=== PATIENT | male | born 1980 | race Caucasian/White ===

== ENCOUNTER 2018-08-04 19:04 | Emergency (ER) | payer BC, SELFPAY ==
[2018-08-04] MEDS ORDERED: IBUPROFEN 200 MG TAB PO ONE (20:09)
[2018-08-04] MEDS ORDERED: IBUPROFEN 400 MG TAB ONE (20:09)
--- NOTE | 2018-08-04 21:38 | RAD REPORT ---
EXAM DESCRIPTION: RAD - Chest Pa And Lat (2 Views) - 08/04/2018 9:33 pm CLINICAL HISTORY: COUGH Chest pain. COMPARISON: No comparisons FINDINGS: The lungs are clear. The heart is normal in size. No displaced fractures. IMPRESSION: No acute or concerning finding suspected.
--- NOTE | 2018-08-04 21:45 | EDPHYS ---
Physician Documentation [facility] Name: Moy Reilly Age: 38 yrs Sex: Male : 1980 Arrival Date: 08/04/2018 Time: 19:08 Bed 30 Private MD: ED Physician Blayne Sampson HPI: 08/04 21:40 This 38 yrs old Male presents to ER via Ambulatory with complaints of Flu pm1 Symptoms. 21:40 The patient or guardian reports cough, with productive sputum, that is yellow. Onset: pm1 The symptoms/episode began/occurred 3 day(s) ago. Severity of symptoms: in the emergency department the symptoms are actually worse. Modifying factors: The symptoms are alleviated by nothing, the symptoms are aggravated by nothing. Associated signs and symptoms: Pertinent positives: sore throat, Pertinent negatives: chest pain, fever, nausea, rhinorrhea, vomiting. The patient has not experienced similar symptoms in the past. The patient has not recently seen a physician. Historical: - Allergies: 19:17 No Known Allergies; aj - Home Meds: 19:17 None [Active]; aj - PMHx: 19:17 None; aj - PSHx: 19:17 None; aj - Immunization history:: Adult Immunizations up to date. - Social history:: Smoking status: Patient uses tobacco products, chewing tobacco. - Ebola Screening: : Patient negative for fever greater than or equal to 101.5 degrees Fahrenheit, and additional compatible Ebola Virus Disease symptoms Patient denies exposure to infectious person Patient denies travel to an Ebola-affected area in the 21 days before illness onset No symptoms or risks identified at this time. ROS: 21:40 Eyes: Negative for injury, pain, redness, and discharge, ENT: Negative for injury, pm1 pain, and discharge. 21:40 Neck: Negative for injury, pain, and swelling, Cardiovascular: Negative for chest pain, palpitations, and edema. 21:40 Abdomen/GI: Negative for abdominal pain, nausea, vomiting, diarrhea, and constipation, Back: Negative for injury and pain, : Negative for injury, bleeding, discharge, and swelling, MS/Extremity: Negative for injury and deformity, Skin: Negative for injury, rash, and discoloration, Neuro: Negative for headache, weakness, numbness, tingling, and seizure. 21:40 Constitutional: Positive for body aches, chills, Negative for fever. 21:40 Respiratory: Positive for cough, Negative for shortness of breath, sputum production, wheezing. Exam: 21:40 Constitutional: This is a well developed, well nourished patient who is awake, alert, pm1 and in no acute distress. Head/Face: Normocephalic, atraumatic. Eyes: Pupils equal round and reactive to light, extra-ocular motions intact. Lids and lashes normal. Conjunctiva and sclera are non-icteric and not injected. Cornea within normal limits. Periorbital areas with no swelling, redness, or edema. ENT: Nares patent. No nasal discharge, no septal abnormalities noted. Tympanic membranes are normal and external auditory canals are clear. Oropharynx with no redness, swelling, or masses, exudates, or evidence of obstruction, uvula midline. Mucous membranes moist. Neck: Trachea midline, no thyromegaly or masses palpated, and no cervical lymphadenopathy. Supple, full range of motion without nuchal rigidity, or vertebral point tenderness. No Meningismus. Chest/axilla: Normal chest wall appearance and motion. Nontender with no deformity. No lesions are appreciated. Cardiovascular: Regular rate and rhythm with a normal S1 and S2. No gallops, murmurs, or rubs. Normal PMI, no JVD. No pulse deficits. 21:40 Abdomen/GI: Soft, non-tender, with normal bowel sounds. No distension or tympany. No guarding or rebound. No evidence of tenderness throughout. Back: No spinal tenderness. No costovertebral tenderness. Full range of motion. Skin: Warm, dry with normal turgor. Normal color with no rashes, no lesions, and no evidence of cellulitis. MS/ Extremity: Pulses equal, no cyanosis. Neurovascular intact. Full, normal range of motion. 21:40 Respiratory: the patient does not display signs of respiratory distress, Respirations: normal, Breath sounds: are clear throughout. 21:40 Neuro: Orientation: is normal, Motor: is normal, Sensation: is normal, no obvious gross deficits. Vital Signs: 19:17 BP 132 / 80; Pulse 73; Resp 17; Temp 98.3; Pulse Ox 98% on R/A; Weight 122.47 kg; aj Height 6 ft. 0 in. (182.88 cm); 20:02 BP 132 / 94; Pulse 71; Resp 16; Temp 99.6(O); Pulse Ox 97% on R/A; tl3 21:18 BP 128 / 83; Pulse 76; Resp 18; Pulse Ox 98% on R/A; tl3 19:17 Body Mass Index 36.62 (122.47 kg, 182.88 cm) MDM: 20:15 Patient medically screened. pm1 21:40 Data reviewed: vital signs. Data interpreted: Pulse oximetry: on room air is 98 %. pm1 Interpretation: normal. Counseling: I had a detailed discussion with the patient and/or guardian regarding: the historical points, exam findings, and any diagnostic results supporting the discharge/admit diagnosis, lab results, radiology results, the need for outpatient follow up, to return to the emergency department if symptoms worsen or persist or if there are any questions or concerns that arise at home. 08/04 19:18 Order name: Flu; Complete Time: 20:15 08/04 19:18 Order name: Strep; Complete Time: 20:15 08/04 19:40 Order name: Throat Culture [facility] 08/04 20:51 Order name: Chest Pa And Lat (2 Views) XRAY; Complete Time: 21:40 pm1 Administered Medications: 20:04 Drug: Ibuprofen 600 mg Route: PO; tl3 21:18 Follow up: Response: No adverse reaction; Marked relief of symptoms tl3 Disposition: 08/05 01:24 Co-signature as Attending Physician, Blayne Sampson MD. pkl Disposition: 08/04/18 21:44 Discharged to Home. Impression: Acute upper respiratory infection, unspecified. - Condition is Stable. - Discharge Instructions: Antibiotic Resistance, Upper Respiratory Infection, Adult. - Prescriptions for Guaifenesin AC 10- 100 mg/5 mL Oral Liquid - take 10 milliliter by ORAL route every 4 hours As needed; 240 milliliter. - Work release form, Medication Reconciliation Form, Thank You Letter, Antibiotic Education, Prescription Opioid Use form. - Follow up: Emergency Department; When: As needed; Reason: Worsening of condition. Follow up: Private Physician; When: 2 - 3 days; Reason: Recheck today's complaints, Continuance of care, Re-evaluation by your physician. - Problem is new. - Symptoms have improved. Signatures: Dispatcher [employer] [facility] Maida Dorantes RN RN aj Lam, Pin, MD MD pkl Chaidez, Leatha, RN RN lp1 Tito Ford, CHEMICAL RESEARCH TECHNICIAN CHEMICAL RESEARCH TECHNICIAN pm1 Dianne Nation, RN RN tl3 Corrections: (The following items were deleted from the chart) 08/04 21:58 21:44 08/04/2018 21:44 Discharged to Home. Impression: Acute upper respiratory lp1 infection, unspecified. Condition is Stable. Forms are Medication Reconciliation Form, Thank You Letter, Antibiotic Education, Prescription Opioid Use. Follow up: Emergency Department; When: As needed; Reason: Worsening of condition. Follow up: Private Physician; When: 2 - 3 days; Reason: Recheck today's complaints, Continuance of care, Re-evaluation by your physician. Problem is new. Symptoms have improved. pm1
--- NOTE | 2018-08-04 21:45 | ER ---
Nurse's Notes [facility] Name: Moy Reilly Age: 38 yrs Sex: Male : 1980 Arrival Date: 08/04/2018 Time: 19:08 Bed 30 Private MD: Diagnosis: Acute upper respiratory infection, unspecified Presentation: 08/04 19:16 Presenting complaint: Patient states: Flu like symptoms for 2 days. Transition of care: aj patient was not received from another setting of care. Onset of symptoms was August 02, 2018. Risk Assessment: Do you want to hurt yourself or someone else? Patient reports no desire to harm self or others. Initial Sepsis Screen: Does the patient meet any 2 criteria? No. Patient's initial sepsis screen is negative. Does the patient have a suspected source of infection? No. Patient's initial sepsis screen is negative. Care prior to arrival: None. 19:16 Method Of Arrival: Ambulatory 19:16 Acuity: FLYNN 4 Triage Assessment: 19:17 General: Appears in no apparent distress. comfortable, Behavior is calm, cooperative, aj appropriate for age. Pain: Denies pain. EENT: Reports nasal congestion nasal discharge. Neuro: Level of Consciousness is awake, alert, obeys commands, Oriented to person, place, time, situation, Appropriate for age. Respiratory: Reports cough that is Airway is patent Respiratory effort is even, unlabored, Respiratory pattern is regular, symmetrical. Derm: Skin is intact, is healthy with good turgor, Skin is pink, warm \T\ dry. normal. Historical: - Allergies: 19:17 No Known Allergies; - Home Meds: 19:17 None [Active]; - PMHx: 19:17 None; - PSHx: 19:17 None; aj - Immunization history:: Adult Immunizations up to date. - Social history:: Smoking status: Patient uses tobacco products, chewing tobacco. - Ebola Screening: : Patient negative for fever greater than or equal to 101.5 degrees Fahrenheit, and additional compatible Ebola Virus Disease symptoms Patient denies exposure to infectious person Patient denies travel to an Ebola-affected area in the 21 days before illness onset No symptoms or risks identified at this time. Screenin:07 Abuse screen: Denies threats or abuse. Nutritional screening: No deficits noted. tl3 Tuberculosis screening: No symptoms or risk factors identified. Fall Risk None identified. Assessment: 20:05 General: Appears uncomfortable, well groomed, well developed, well nourished, Behavior tl3 is calm, cooperative, appropriate for age. Pain: Denies pain. Neuro: Level of Consciousness is awake, alert, obeys commands, Oriented to person, place, time, situation, Appropriate for age. Cardiovascular: Patient's skin is warm and dry. Respiratory: Airway is patent Respiratory effort is even, unlabored, Respiratory pattern is regular, symmetrical. Respiratory: Reports cough that is persistent. GI: No signs and/or symptoms were reported involving the gastrointestinal system. : No signs and/or symptoms were reported regarding the genitourinary system. EENT: Nares with drainage noted. Derm: No signs and/or symptoms reported regarding the dermatologic system. 21:18 Reassessment: Patient appears in no apparent distress at this time. No changes from tl3 previously documented assessment. Patient and/or family updated on plan of care and expected duration. Pain level reassessed. Patient is alert, oriented x 3, equal unlabored respirations, skin warm/dry/pink. Vital Signs: 19:17 BP 132 / 80; Pulse 73; Resp 17; Temp 98.3; Pulse Ox 98% on R/A; Weight 122.47 kg; aj Height 6 ft. 0 in. (182.88 cm); 20:02 BP 132 / 94; Pulse 71; Resp 16; Temp 99.6(O); Pulse Ox 97% on R/A; tl3 21:18 BP 128 / 83; Pulse 76; Resp 18; Pulse Ox 98% on R/A; tl3 19:17 Body Mass Index 36.62 (122.47 kg, 182.88 cm) aj ED Course: 19:08 Patient arrived in ED. mr 19:17 Triage completed. aj 19:17 Arm band placed on left wrist. Patient placed in waiting room, Patient notified of wait aj time. Labs ordered per protocol. 19:48 Dianne Nation, TITUS is Primary Nurse. tl3 19:51 Tito Ford NP is PHCP. pm1 19:51 Blayne Sampson MD is Attending Physician. pm1 20:07 Patient has correct armband on for positive identification. Bed in low position. Call tl3 light in reach. Pulse ox on. NIBP on. 20:07 No provider procedures requiring assistance completed. Patient did not have IV access tl3 during this emergency room visit. 21:31 Chest Pa And Lat (2 Views) XRAY In Process Unspecified. EDMS Administered Medications: 20:04 Drug: Ibuprofen 600 mg Route: PO; tl3 21:18 Follow up: Response: No adverse reaction; Marked relief of symptoms tl3 Outcome: 21:44 Discharge ordered by MD. pm1 21:58 Discharged to home ambulatory, with significant other. lp1 21:58 Condition: good 21:58 Discharge instructions given to patient, Instructed on discharge instructions, follow up and referral plans. medication usage, Demonstrated understanding of instructions, follow-up care, medications, Prescriptions given X 1. 21:58 Patient left the ED. lp1 Signatures: Dispatcher [employer] ED[facility] Maida Dorantes RN RN aj Rivera, Mary mr Pena, Laura, RN RN lp1 Tito Ford, COMMODITY DIRECTOR COMMODITY DIRECTOR pm1 Rachel Monroy mt, Tammy, RN RN tl3 Corrections: (The following items were deleted from the chart) 20:07 20:02 BP 132 / 94; Pulse 71bpm; Resp 16bpm; Pulse Ox 97% RA; mt tl3
== END 2018-08-04 21:58 | disposition home or self-care (01) ==
LOC: ER 19:04
DX: J06.9 Acute upper respiratory infection, unspecified (principal); F17.220 Nicotine dependence, chewing tobacco, uncomplicated
CPT/HCPCS: 71046; 87070; 87081; 87804; 99284

== ENCOUNTER 2024-11-18 02:17 | Observation (INO) | payer SELFPAY ==
[2024-11-18] MEDS ORDERED: ONDANSETRON 4 MG/2 ML VIAL ONE (02:51)
[2024-11-18] MEDS ORDERED: PANTOPRAZOLE 40 MG INJ ONE (02:51)
[2024-11-18] MEDS ORDERED: MORPHINE 2 MG/ML SYR ONE (02:51)
[2024-11-18] MEDS ORDERED: MORPHINE 4 MG/ML SYR ONE (02:52)
[2024-11-18] MEDS ORDERED: ASPIRIN 81 MG CHEWABLE TABLET ONE (02:52)
[2024-11-18] MEDS ORDERED: FAMOTIDINE 20 MG/2 ML VIAL IV ONE (02:52)
[2024-11-18 03:27] LABS: Absolute Eosinophils 0.3 K/uL (0-0.5); Absolute Lymphocytes (CBC) 2.7 K/uL (0.7-4.9); Absolute Monocytes 1.3 K/uL (0.1-1.3); Absolute Neutrophil 12.1 K/uL (1.8-8.0); Basophils % 0.2 % (0-1.3); Eosinophils % 1.6 % (0-4.4); Hematocrit 42.6 % (39.6-49.0); Hemoglobin 14.5 g/dL (13.6-17.9); Lymphocytes % 16.7 % (15.3-44.8); MCH 30.2 pg (27.0-35.0); MCHC 34.1 g/dL (32.0-36.0); MCV 88.6 fL (80-100); Monocytes % 7.9 % (3.3-12.3); Neutrophils % 73.6 % (41.7-73.7); Platelets 258 thou/uL (152-406); RBC Red Blood Cell Count 4.81 M/uL (4.33-5.43)
[2024-11-18 03:36] LABS: PT Prothrombin Time 11.4 SECONDS (10-13.0)
[2024-11-18 03:53] LABS: ALT/SGPT 38 U/L (16-61); AST/SGOT 12 U/L (15-37); Albumin 3.1 g/dL (3.4-5.0); Albumin/Globulin Ratio 0.9 (1.1-1.8); Alkaline Phosphatase 81 U/L (45-117); Anion Gap 6.2 mEq/L (5.0-15.0); BUN Blood Urea Nitrogen 18 mg/dL (7-18); Bicarbonate 25 mEq/L (21-32); Bilirubin Total 0.5 mg/dL (0.2-1.0); Globulin 3.4 g/dL (2.3-3.5); Glomerular Filtration Rate 82 ml/min (=/>90); Glucose Level 119 mg/dL (74-106); Lipase 62 U/L (13-75); Magnesium 1.8 mg/dL (1.6-2.4); NT PRO-BNP 12 pg/mL (<125); Potassium 4.2 mEq/L (3.5-5.1); Protein, Total 6.5 g/dL (6.4-8.2); Sodium Level 138 mEq/L (136-145)
[2024-11-18 04:03] LABS: Bilirubin Direct < 0.2 mg/dL (0-0.2); Bilirubin Indirect, Calculated 0.3 mg/dL (0.2-0.8)
--- NOTE | 2024-11-18 05:13 | RAD REPORT ---
CLINICAL HISTORY: Chest pain. COMPARISON: None. TECHNIQUE: XR CHEST 1 VIEW 11/18/2024 2:34 AM CDT FINDINGS: The heart is borderline in size. Lungs are clear without consolidation, atelectasis, mass or edema. T here is no pleural effusion. There is no pneumothorax. There are no acute osseous findings. IMPRESSION: Clear lungs. Electronically signed by: Hossein Solano MD 11/18/2024 04:59 AM CDT RP Due to temporary technical issues with the [employer] reporting system, reports are being ara d by the in-house radiologist without review as a courtesy to ensure prompt reporting the interpreting radiologist is fully responsible for the content of the report. Transcribed Date/Time: 11/18/2024 5:12 AM
[2024-11-18 06:06] LABS: Troponin High Sensitivity 5.2 pg/mL (<58.9)
--- NOTE | 2024-11-18 06:49 | EDPHYS ---
Physician Documentation [facility] Name: Moy Reilly Age: 44 yrs Sex: Male : 1980 Arrival Date: 11/18/2024 Time: 02:17 Bed 5 Private MD: ED Physician Aleksandar Kan HPI: 11/18 02:33 This 44 yrs old Male presents to ER via Wheelchair with complaints of Chest sp4 Pain. 06:41 44-year-old male presents with acute onset midsternal chest discomfort associated with sp4 left hand numbness . Patient states no exertional chest pains. Patient states pain woke him up 45 minutes prior to arrival. Denied previous health issues. Reported few occasional chest pains in the past but no prior Cardiologic evaluation. Discomfort rated 5 out of 10 on a scale. Historical: - Allergies: 02:28 No Known Allergies; cp4 - Immunization history:: Adult Immunizations up to date. - Infectious Disease History:: Denies. - Social history:: Smoking status: Patient denies any tobacco usage or history of. - Family history:: not pertinent. ROS: 06:41 Constitutional: Negative for fever, chills, and weight loss, positive midsternal chest sp4 pain, positive left hand numbness 06:41 All other systems are negative, Exam: 06:41 Constitutional: This is a well developed, well nourished patient who is awake, alert, sp4 and in no acute distress. Head/Face: Normocephalic, atraumatic. Eyes: Pupils equal round and reactive to light, extra-ocular motions intact. Lids and lashes normal. Conjunctiva and sclera are not injected. Cornea within normal limits. Periorbital areas with no swelling, redness, or edema. ENT: Nares patent. No nasal discharge, no septal abnormalities noted. Tympanic membranes are normal and external auditory canals are clear. Oropharynx with no redness, swelling, or masses, exudates, or evidence of obstruction, uvula midline. Mucous membranes moist. Neck: Trachea midline, no thyromegaly or masses palpated, and no cervical lymphadenopathy. Supple, full range of motion without nuchal rigidity, or vertebral point tenderness. Chest/axilla: Normal chest wall appearance and motion. Nontender with no deformity. No lesions are appreciated. Cardiovascular: Regular rate and rhythm with a normal S1 and S2. No gallops, murmurs, or rubs. Normal PMI, no JVD. No pulse deficits. Respiratory: Lungs have equal breath sounds bilaterally, clear to auscultation and percussion. No rales, rhonchi or wheezes noted. No increased work of breathing, no retractions or nasal flaring. Abdomen/GI: Soft, with normal bowel sounds. No distension or tympany. No guarding or rebound. No evidence of tenderness throughout. Back: No spinal tenderness. No costovertebral tenderness. Skin: Warm, dry with normal turgor. Normal color with no rashes, no lesions, and no evidence of cellulitis. MS/ Extremity: Pulses equal, no cyanosis. Neurovascular intact. Full, normal range of motion. Neuro: Awake and alert, GCS 15, oriented to person, place, time, and situation. Cranial nerves II-XII grossly intact. Motor strength 5/5 in all extremities. Sensory grossly intact. Psych: Awake, alert, with orientation to person, place and time. Behavior, mood, and affect are within normal limits 06:41 ECG was reviewed by the Attending Physician. EKG at 0 228 EKG reveals normal sinus rhythm rate 64 Vital Signs: 02:26 BP 157 / 103; Pulse 62; Resp 18; Temp 98.1; Pulse Ox 100% ; Weight 122.47 kg; Height 6 cp4 ft. 0 in. ; Pain 6/10; 03:30 BP 138 / 81; Pulse 67; Resp 20; Pulse Ox 98% on R/A; oe 04:54 BP 138 / 87; Pulse 68; Resp 18; Pulse Ox 92% on R/A; kd3 06:07 BP 143 / 93; Pulse 71; Resp 18; Pulse Ox 95% on R/A; kd3 07:10 BP 132 / 87; Pulse 71; Resp 18; Temp 97.5; Pulse Ox 95% on R/A; ph 02:26 Body Mass Index 36.62 (122.47 kg, 182.88 cm) cp4 02:26 Pain Scale: Adult cp4 [place] Coma Score: 02:41 Eye Response: spontaneous(4). Motor Response: obeys commands(6). Verbal Response: dd2 oriented(5). Total: 15. 06:41 Eye Response: spontaneous(4). Motor Response: obeys commands(6). Verbal Response: sp4 oriented(5). Total: 15. MDM: 02:50 Medical Screening Exam initiated sp4 06:47 ED course: CLINICAL HISTORY: Chest pain. COMPARISON: None. TECHNIQUE: XR CHEST 1 VIEW 4 11/18/2024 2:34 AM CDT FINDINGS: The heart is borderline in size. Lungs are clear without consolidation, atelectasis, mass or edema. There is no pleural effusion. There is no pneumothorax. There are no acute osseous findings. IMPRESSION: Clear lungs. . 06:48 Differential diagnosis: acute myocardial infarction, acute pericarditis, anxiety, sp4 coronary artery disease chest wall pain, esophagitis, gastritis. HEART Score: History: Moderately Suspicious (1), ECG: Normal (0), Age: < or = 45 years (0), Risk Factors: No Risk Factors Known (0), Troponin: < or = 1 x Normal Limit (0), Total Score = 1. Data reviewed: vital signs, nurses notes, old medical records, lab test result(s), EKG, radiologic studies. 21:24 The patient was given aspirin in the Emergency Department. 4 11/18 02:34 Order name: Basic Metabolic Panel; Complete Time: 04:17 [place] [facility] 11/18 02:34 Order name: CBC with Diff; Complete Time: 04:17 [place] [facility] 11/18 02:34 Order name: LFT's; Complete Time: 04:17 sp 11/18 02:34 Order name: Magnesium; Complete Time: 04:17 [place] [facility] 11/18 02:34 Order name: NT PRO-BNP; Complete Time: 04:17 [place] [facility] 11/18 02:34 Order name: PT-INR; Complete Time: 04:17 4 11/18 02:34 Order name: Troponin HS; Complete Time: 04:17 4 11/18 02:34 Order name: Urine Drug Screen 4 11/18 02:34 Order name: Lipase; Complete Time: 04:17 sp4 11/18 02:34 Order name: Alcohol Level; Complete Time: 04:17 sp4 11/18 02:45 Order name: T4 Free; Complete Time: 04:17 EDMS 11/18 02:45 Order name: Thyroid Stimulating Hormone; Complete Time: 04:17 EDIA 11/18 05:30 Order name: Troponin High Sensitivity; Complete Time: 06:07 sp4 11/18 05:30 Order name: CK; Complete Time: 06:07 sp4 11/18 07:23 Order name: Basic Metabolic Panel EDMS 11/18 07:23 Order name: Basic Metabolic Panel EDMS 11/18 07:23 Order name: CBC with Automated Diff EDMS 11/18 07:23 Order name: CBC with Automated Diff EDMS 11/18 07:23 Order name: Troponin High Sensitivity EDMS 11/18 07:23 Order name: Troponin High Sensitivity; Complete Time: 21:23 EDMS 11/18 07:23 Order name: Troponin High Sensitivity; Complete Time: 21:23 EDMS 11/18 02:34 Order name: XRAY Chest (1 view); Complete Time: 06:07 sp4 11/18 07:08 Order name: Chest For PE Angio CT; Complete Time: 21:23 la1 11/18 07:23 Order name: Echo with Doppler EDMS 11/18 02:34 Order name: Cardiac monitoring; Complete Time: 02:40 sp4 11/18 02:34 Order name: EKG - Nurse/Tech; Complete Time: 02:34 sp4 11/18 02:34 Order name: IV Saline Lock; Complete Time: 02:40 sp4 11/18 02:34 Order name: Labs collected and sent; Complete Time: 02:40 sp4 11/18 02:34 Order name: O2 Per Protocol; Complete Time: 02:40 sp4 11/18 02:34 Order name: O2 Sat Monitoring; Complete Time: 02:40 sp4 11/18 03:01 Order name: Misc. Order: all Labs hemolyzed please redraw; Complete Time: 03:15 vk EC:28 Rate is 64 beats/min. Rhythm is regular, Normal Sinus Rhythm. QRS Hoffman is Normal. MS sp4 interval is normal. QRS interval is normal. QT interval is normal. No Q waves. T waves are Normal. No ST changes noted. Clinical impression: Normal ECG. Interpreted by me. Reviewed by me. Administered Medications: 03:05 Drug: Famotidine IVP 20 mg IVP once; dilute with 10 mL 0.9% NaCl; give over 2 minutes br2 Route: IVP; Site: right antecubital; 08:04 Follow up: Response: No adverse reaction ph 03:06 Drug: morphine IVP or IV 6 mg IVP once over 4 mins Route: IVP; Infused Over: 4 mins; br2 Site: right antecubital; 08:05 Follow up: Response: No adverse reaction ph 03:06 Drug: Ondansetron IVP 8 mg IVP once; over 2 minutes Route: IVP; Site: right antecubital;br2 08:05 Follow up: Response: No adverse reaction ph 03:06 Drug: Aspirin PO Chewable Tablet 324 mg PO once; 81 mg tablets x 4 Route: PO; br2 08:04 Follow up: Response: No adverse reaction ph 03:06 Drug: Pantoprazole IVP 40 mg IVP once Route: IVP; Site: right antecubital; br2 08:04 Follow up: Response: No adverse reaction ph Disposition Summary: 11/18/24 06:48 Hospitalization Ordered Notes: Hospitalization Status: Observation sp4 Provider: Alek Lopez sp4 Location: Telemetry/MedSurg (observation) sp4 Condition: Stable sp4 Problem: new sp4 Symptoms: have improved sp4 Bed/Room Type: Standard sp4 Room Assignment: 410(11/18/24 07:37) 6 Diagnosis - Unstable angina sp4 Forms: - Medication Reconciliation Form sp4 - SBAR form sp4 - Leadership Thank You Letter sp4 Signatures: Dispatcher [employer] Trupti Robbins bc6 Aleksandar Kan MD MD sp4 Dayanara Mo Vivian vk Riddle, Belinda, RN RN br2 Marleni Rajan RN ph Corrections: (The following items were deleted from the chart) 02:35 02:34 BASIC METABOLIC PANEL+C.LAB.BRZ ordered. EDMS EDMS 02:35 02:34 CBC+H.LAB.BRZ ordered. EDMS EDMS 02:35 02:34 HEPATIC FUNCTION+C.LAB.BRZ ordered. EDMS EDMS 02:35 02:34 MAGNESIUM+C.LAB.BRZ ordered. EDMS EDMS 02:35 02:34 PROBNP+C.LAB.BRZ ordered. EDMS EDMS 02:35 02:34 PROTIME (+INR)+COAG.LAB.BRZ ordered. EDMS EDMS 02:35 02:34 Troponin High Sensitivity+C.LAB.BRZ ordered. EDMS EDMS 02:35 02:35 Chest Single View+RAD.RAD.BRZ ordered. EDMS EDMS 02:35 02:35 URINE DRUG SCREEN+UC.LAB.BRZ ordered. EDMS EDMS 02:35 02:35 LIPASE+C.LAB.BRZ ordered. EDMS EDMS 02:35 02:35 ETHANOL+C.LAB.BRZ ordered. EDMS EDMS 02:42 02:40 THYROID STIMULAT HORMONE+C.LAB.BRZ ordered. EDMS EDMS 02:42 02:40 T4 FREE+C.LAB.BRZ ordered. EDMS EDMS 07:37 06:48 sp4 bc6
--- NOTE | 2024-11-18 06:49 | ER ---
Nurse's Notes [facility] Name: Moy Reilly Age: 44 yrs Sex: Male : 1980 Arrival Date: 11/18/2024 Time: 02:17 Bed 5 Private MD: Diagnosis: Unstable angina Presentation: 11/18 02:26 Chief complaint: Patient states: chest pain that woke him up from his sleep about 45 cp4 minutes ago. Coronavirus screen: Vaccine status: Patient reports being unvaccinated. Client denies travel out of the [place] in the last 14 days. At this time, the client does not indicate any symptoms associated with coronavirus-19. Ebola Screen: Patient negative for fever greater than or equal to 101.5 degrees Fahrenheit, and additional compatible Ebola Virus Disease symptoms Patient denies exposure to infectious person. Patient denies travel to an Ebola-affected area in the 21 days before illness onset. No symptoms or risks identified at this time. Initial Sepsis Screen: Does the patient meet any 2 criteria? No. Patient's initial sepsis screen is negative. Does the patient have a suspected source of infection? No. Patient's initial sepsis screen is negative. Risk Assessment: Do you want to hurt yourself or someone else? Patient reports no desire to harm self or others. Onset of symptoms was November 18, 2024 at 01:30. 02:26 Method Of Arrival: Wheelchair cp4 02:26 Acuity: FLYNN 3 cp4 Triage Assessment: 02:28 General: Appears in no apparent distress. uncomfortable, Behavior is calm, cooperative, cp4 appropriate for age. Pain: Complains of pain in chest. Cardiovascular: Patient's skin is warm and dry. Historical: - Allergies: 02:28 No Known Allergies; cp4 - Immunization history:: Adult Immunizations up to date. - Infectious Disease History:: Denies. - Social history:: Smoking status: Patient denies any tobacco usage or history of. - Family history:: not pertinent. Screenin:41 [facility] ED Fall Risk Assessment (Adult) History of falling in the last 3 months, dd2 including since admission No falls in past 3 months (0 pts) Confusion or Disorientation No (0 pts) Intoxicated or Sedated No (0 pts) Impaired Gait No (0 pts) Mobility Assist Device Used No (0 pt) Altered Elimination No (0 pt) Score/Fall Risk Level 0 - 2 = Low Risk Oriented to surroundings, Maintained a safe environment, Educated pt \T\ family on fall prevention, incl call for assistance when getting out of bed, Assessed \T\ reinforced patient's understanding of fall precautions, Hourly rounding (assess needs \T\ fall precautionary measures) done. Abuse screen: Denies threats or abuse. Denies injuries from another. Nutritional screening: No deficits noted. Tuberculosis screening: No symptoms or risk factors identified. Assessment: 02:41 General: Appears in no apparent distress. uncomfortable, Behavior is cooperative, dd2 appropriate for age, anxious. Pain: Complains of pain in mid-sternal area Pain does not radiate. Pain currently is 10 out of 10 on a pain scale. Quality of pain is described as heavy, pressure, Pain began suddenly, 30 min ago. Neuro: No deficits noted. Long Agitation-Sedation Scale (RASS): 0 - Alert and Calm Level of Consciousness is awake, alert, obeys commands, Oriented to person, place, time, situation, Appropriate for age. Cardiovascular: Reports chest pain, shortness of breath, Heart tones S1 S2 present Patient's skin is warm and dry. Rhythm is sinus rhythm. Respiratory: Reports shortness of breath at rest on exertion pain with respiration Airway is patent Respiratory effort is even, unlabored, Respiratory pattern is regular, symmetrical, Breath sounds are clear bilaterally. GI: No deficits noted. No signs and/or symptoms were reported involving the gastrointestinal system. Abdomen is round obese, Abd is soft and non tender X 4 quads. : No deficits noted. No signs and/or symptoms were reported regarding the genitourinary system. EENT: No deficits noted. No signs and/or symptoms were reported regarding the EENT system. Derm: Skin is healthy with good turgor, Skin is dry, Skin is normal, Skin temperature is warm Reports tingling, TO LT HAND FINGERTIPS. Musculoskeletal: No deficits noted. Circulation, motion, and sensation intact. Range of motion: intact in all extremities. 07:15 Reassessment: Patient appears in no apparent distress at this time. Patient and/or ph family updated on plan of care and expected duration. Pain level reassessed. Patient is alert, oriented x 3, equal unlabored respirations, skin warm/dry/pink. pt taken to CT via wheelchair Patient denies pain at this time. 07:50 Reassessment: report faxed to 4th floor. ph Vital Signs: 02:26 BP 157 / 103; Pulse 62; Resp 18; Temp 98.1; Pulse Ox 100% ; Weight 122.47 kg; Height 6 cp4 ft. 0 in. ; Pain 6/10; 03:30 BP 138 / 81; Pulse 67; Resp 20; Pulse Ox 98% on R/A; oe 04:54 BP 138 / 87; Pulse 68; Resp 18; Pulse Ox 92% on R/A; kd3 06:07 BP 143 / 93; Pulse 71; Resp 18; Pulse Ox 95% on R/A; kd3 07:10 BP 132 / 87; Pulse 71; Resp 18; Temp 97.5; Pulse Ox 95% on R/A; ph 02:26 Body Mass Index 36.62 (122.47 kg, 182.88 cm) cp4 02:26 Pain Scale: Adult cp4 [place] Coma Score: 02:41 Eye Response: spontaneous(4). Motor Response: obeys commands(6). Verbal Response: dd2 oriented(5). Total: 15. 06:41 Eye Response: spontaneous(4). Motor Response: obeys commands(6). Verbal Response: sp4 oriented(5). Total: 15. ED Course: 02:19 Patient arrived in ED. vk 02:28 Lisbeth Mayfield, RN is Primary Nurse. kd3 02:28 Triage completed. cp4 02:28 Arm band placed on right wrist. Patient placed in waiting room. cp4 02:33 Aleksandar Kan MD is Attending Physician. sp4 02:34 EKG done, by ED staff, reviewed by Aleksandar Kan MD. oe 02:35 Inserted saline lock: 20 gauge in right antecubital area, using aseptic technique. oe Blood collected. Flushed with 10 mL NS. 02:41 Patient has correct armband on for positive identification. Bed in low position. Call dd2 light in reach. Side rails up X 1. Client placed on continuous cardiac and pulse oximetry monitoring. NIBP monitoring applied. monitoring tech on. Door closed. Noise minimized. Warm blanket given. Pillow given. Verbal reassurance given. 02:41 No provider procedures requiring assistance completed. Patient maintains SpO2 dd2 saturation greater than 95% on room air. 03:18 XRAY Chest (1 view) In Process Unspecified. EDMS 05:37 Troponin High Sensitivity Sent. kd3 05:37 CK Sent. kd3 06:47 Alek Lopze MD is Hospitalizing Provider. sp4 07:30 Chest For PE Angio CT In Process Unspecified. EDMS 08:04 Patient admitted, IV remains in place. ph Administered Medications: 03:05 Drug: Famotidine IVP 20 mg IVP once; dilute with 10 mL 0.9% NaCl; give over 2 minutes br2 Route: IVP; Site: right antecubital; 08:04 Follow up: Response: No adverse reaction ph 03:06 Drug: morphine IVP or IV 6 mg IVP once over 4 mins Route: IVP; Infused Over: 4 mins; br2 Site: right antecubital; 08:05 Follow up: Response: No adverse reaction ph 03:06 Drug: Ondansetron IVP 8 mg IVP once; over 2 minutes Route: IVP; Site: right antecubital;br2 08:05 Follow up: Response: No adverse reaction ph 03:06 Drug: Aspirin PO Chewable Tablet 324 mg PO once; 81 mg tablets x 4 Route: PO; br2 08:04 Follow up: Response: No adverse reaction ph 03:06 Drug: Pantoprazole IVP 40 mg IVP once Route: IVP; Site: right antecubital; br2 08:04 Follow up: Response: No adverse reaction ph Medication: 02:41 VIS not applicable for this client. dd2 Outcome: 06:48 Decision to Hospitalize by Provider. sp4 08:25 Patient left the ED. ph Signatures: Dispatcher [employer] EDMS Marleni Rajan, RN RN ph Ghassan Russ Kyli RN RN [id number] Aleksandar Kan MD MD sp4 Dayanara Mo Vivian vk Riddle, Belinda, RN RN br2 VALERIY GAINES RN RN dd2
[2024-11-18] MEDS ORDERED: MORPHINE 2 MG/ML SYR IV PRN (07:19)
[2024-11-18] MEDS ORDERED: ONDANSETRON 4 MG/2 ML VIAL IV PRN (07:19)
--- NOTE | 2024-11-18 08:27 | RAD REPORT ---
EXAM: CT Chest For Pe Angio TECHNIQUE: CT angiogram of the chest was performed following intravenous contrast administration, inc luding sagittal and coronal as well as maximum intensity projection reformats. One or more of the following dose reduction techniques were used: Automated exposure control, adjustment of the mA and k V according to patient size, and iterative reconstruction. Unless otherwise specified, incidental findings do not require dedicated imaging follow-up. INDICATION: CHEST PAIN COMPARISON: Chest radiograph of earlier the same day. FINDINGS: LINES/TUBES: None. PULMONARY ARTERIES: Main pulmonary arteries are normal in caliber. No filling defects within the pul monary arteries to suggest pulmonary embolus. LUNGS AND AIRWAYS: The lungs and central airways are normal without focal abnormality. Bibasilar plat elike atelectasis. PLEURA: No effusion or pneumothorax. HEART AND MEDIASTINUM: The visualized thyroid gland is normal. No mediastinal, hilar, or axillary lym phadenopathy. Heart is unremarkable. No pericardial effusion. SOFT TISSUES AND BONES: No acute osseous abnormality. No significant soft tissue finding. UPPER ABDOMEN: Unremarkable. IMPRESSION: No evidence of acute central pulmonary emboli. No suspicious intrathoracic findings..
[2024-11-18] MEDS: ENOXAPARIN 40 MG/0.4 ML SQ SCH (09:27)
[2024-11-18] MEDS: ASPIRIN EC 81 MG TAB PO SCH (09:27)
[2024-11-18 09:47] VITALS: BMI 36.6
--- NOTE | 2024-11-18 11:13 | P.PN ---
This is an attestation to NEIGHBORHOOD AIDE note. Subjective: Present with shortness of breath, pain little better. No shortness of breath. No nausea or vomiting. No abdominal pain. No obvious bleeding. Looks comfortable in the bed. Objective: General appearance: Alert and comfortable CVS: Normal S1 and S2 Lungs: Clear to auscultation bilaterally Abdomen: Soft, bowel sounds present, no tenderness Extremities: No lower extremity edema 44-year-old patient with chest pain, CT chest negative, troponins negative, cardiology consult requested. Mild leukocytosis, probably reactive, monitor closely.
--- NOTE | 2024-11-18 12:20 | P.CNS ---
Date of Consult: 11/18/24 Chief Complaint: chest pain History of Present Illness: Patient with no significant PMH presented with chest pain, sharp in nature, started yesterday, mid chest, no radiation, report occasional bilateral fingers numbness, denies SOB, no MAGALLON, no palpitations, no syncope, no tobacco, no family history of CAD. Allergies No Known Drug Allergies Allergy (Verified 11/18/24 09:27) Unknown Home medications list reviewed: Yes Home Medications: NK [No Home Meds] 11/18/24 - Past Medical/Surgical History Diabetic: No - Social History Alcohol use: Yes CD- Drugs: No Caffeine use: Yes Place of Residence: Home Review of Systems 10-point ROS is otherwise unremarkable Physical Examination Temp Pulse Resp BP Pulse Ox 98.0 F 69 16 141/81 H 95 11/18/24 08:45 11/18/24 08:45 11/18/24 08:45 11/18/24 08:45 11/18/24 08:45 General: Alert, In no apparent distress HEENT: Atraumatic, PERRLA, Mucous membr. moist/pink, EOMI, Sclerae nonicteric Neck: Supple, 2+ carotid pulse no bruit, No LAD, Without JVD or thyroid abnormality Respiratory: Clear to auscultation bilaterally, Normal air movement Cardiovascular: Regular rate/rhythm, Normal S1 S2 Gastrointestinal: Normal bowel sounds, No tenderness Musculoskeletal: No tenderness Integumentary: No rashes Neurological: Normal gait, Normal speech, Normal tone, Normal affect Lymphatics: No axilla or inguinal lymphadenopathy Laboratory Data (last 24 hrs) 11/18/24 11/18/24 11/18/24 03:13 03:13 03:13 WBC 16.40 H Hgb 14.5 Hct 42.6 Plt Count 258 PT 11.4 INR 1.00 Sodium 138 Potassium 4.2 BUN 18 Creatinine 1.14 Glucose 119 H Magnesium 1.8 Total Bilirubin 0.5 AST 12 L ALT 38 Alkaline Phosphatase 81 Lipase 62 - Problems (1) Chest pain Current Visit: Yes Status: Acute Plan: cardiac enzymes are negative, echo is normal NPO after midnight for nuclear stress test in am (Lexiscan). ASA 81 mg daily Lipitor 40 mg daily (2) HTN (hypertension) Current Visit: Yes Status: Acute Plan: add Losartan 25 mg daily
[2024-11-18] MEDS: LOSARTAN POTASSIUM 50 MG TABLET PO SCH (12:30)
--- NOTE | 2024-11-18 13:17 | ECHO ---
HEIGHT: 6 ft 0 in WEIGHT: 270 lb 0 oz DATE OF STUDY: 11/18/[address]: Jama Mcclain NP 2-DIMENSIONAL: YES M.MODE: YES DOPPLER: YES COLOR FLOW: YES TDS: PORTABLE: YES DEFINITY: BUBBLE STUDY: DIAGNOSIS: CHEST PAIN CARDIAC HISTORY: CATHERIZATION: NO SURGERY: NO PROSTHETIC VALVE: NO PACEMAKER: NO MEASUREMENTS (cm) DIASTOLIC (NORMALS) SYSTOLIC (NORMALS) IVSd 1.0 (0.6-1.2) LA Diam 3.1 (1.9-4.0) LVEF 60-65% LVIDd 4.0 (3.5-5.7) LVIDs 2.6 (2.0-3.5) %FS 34% LVPWd 1.2 (0.6-1.2) Ao Diam 3.3 (2.0-3.7) 2 DIMENSIONAL ASSESSMENT: RIGHT ATRIUM: NORMAL LEFT ATRIUM: NORMAL RIGHT VENTRICLE: NORMAL LEFT VENTRICLE: NORMAL TRICUSPID VALVE: NORMAL MITRAL VALVE: NORMAL PULMONIC VALVE: NORMAL AORTIC VALVE: NORMAL PERICARDIAL EFFUSION: NONE AORTIC ROOT: NORMAL LEFT VENTRICULAR WALL MOTION: NORMAL DOPPLER/COLOR FLOW: NORMAL COMMENTS: 1. NORMAL LEFT VENTRICULAR SYSTOLIC FUNCTION, EJECTION FRACTION 60-65%, NORMAL WALL MOTION 2. NORMAL DIASTOLIC FUNCTION TECHNOLOGIST: NILO HAYDEN
--- NOTE | 2024-11-18 15:53 | P.HP ---
Certification for Inpatient Patient admitted to: Observation With expected LOS: <2 Midnights Patient will require the following post-hospital care: None Practitioner: I am a practitioner with admitting privileges, knowledge of patient current condition, hospital course, and medical plan of care. Services: Services provided to patient in accordance with Admission requirements found in Title 42 Section 412.3 of the Code of Federal Regulations Patient History Date of Service: 11/18/24 Reason for admission: chest pain History of Present Illness: 44-year-old male who is otherwise healthy presents to the emergency department with chief complaint of chest pain. The chest pain woke him from his sleep described as "getting kicked in the chest". It is worse with deep breaths. He was evaluated in the emergency department his initial high-sensitivity troponin was normal CTA of the chest was also performed which was negative for acute findings. Patient with ongoing pain, ED provider wishes to admit under observation for ACS rule out. Allergies No Known Drug Allergies Allergy (Verified 11/18/24 09:27) Unknown Home Medications: NK [No Home Meds] 11/18/24 - Past Medical/Surgical History Has patient received pneumonia vaccine in the past: No Diabetic: No -: None -: None Psychosocial/ Personal History: Works as a heavy truck technician, lives at home [facility] - Social History Smoking Status: Never smoker Alcohol use: Yes CD- Drugs: No Caffeine use: Yes Place of Residence: Home Review of Systems 10-point ROS is otherwise unremarkable Cardiovascular: Chest Pain Physical Examination - Vital Signs Temperature: 97.9 F Blood Pressure: 152/78 Pulse: 66 Respirations: 18 Pulse Ox (%): 96 - Physical Exam General: Alert, In no apparent distress, Oriented x3 HEENT: Atraumatic, EOMI Neck: Supple Respiratory: Clear to auscultation bilaterally, Normal air movement Cardiovascular: Regular rate/rhythm, Normal S1 S2 Gastrointestinal: Normal bowel sounds, No tenderness Musculoskeletal: No tenderness Integumentary: No rashes Neurological: Normal speech, Normal strength at 5/5 x4 extr, Normal affect - Studies Laboratory Data (last 24 hrs) 11/18/24 11/18/24 11/18/24 03:13 03:13 03:13 WBC 16.40 H Hgb 14.5 Hct 42.6 Plt Count 258 PT 11.4 INR 1.00 Sodium 138 Potassium 4.2 BUN 18 Creatinine 1.14 Glucose 119 H Magnesium 1.8 Total Bilirubin 0.5 AST 12 L ALT 38 Alkaline Phosphatase 81 Lipase 62 Assessment and Plan - Plan Assessment: Chest pain rule out ACS Plan: Chest pain rule out ACS Troponins negative CTA chest negative for acute finding/no PE Seen by cardiology, recommended stress test N.p.o. after midnight for stress test tomorrow DVT PPX: Lovenox Code status: Full Discharge Plan: Home Plan to discharge in: 24 Hours - Advance Directives Does patient have a Living Will: No Does patient have a Durable POA for Healthcare: No - Code Status/Comfort Care Code Status Assessed: Yes (Full code) Critical Care: No Time Spent Managing Pts Care (In Minutes): 60
[2024-11-18] MEDS: ATORVASTATIN 40 MG TAB PO SCH (20:39)
[2024-11-19 06:12] LABS: Absolute Eosinophils 0.3 K/uL (0-0.5); Absolute Monocytes 0.8 K/uL (0.1-1.3); Absolute Neutrophil 5.1 K/uL (1.8-8.0); Basophils % 0.4 % (0-1.3); Eosinophils % 3.3 % (0-4.4); Hematocrit 42.8 % (39.6-49.0); Hemoglobin 14.6 g/dL (13.6-17.9); Lymphocytes % 32.6 % (15.3-44.8); MCH 30.5 pg (27.0-35.0); MCHC 34.2 g/dL (32.0-36.0); MCV 89.2 fL (80-100); MPV 8.2 fL (7.6-11.3); Monocytes % 8.9 % (3.3-12.3); Neutrophils % 54.8 % (41.7-73.7); Nucleated Red Blood Cells % 0.1 % (0-0); Platelets 280 thou/uL (152-406); Red Cell Distribution Width 13.9 % (12.1-15.2)
[2024-11-19] MEDS ORDERED: REGADENOSON 0.4 MG/5 ML SYR IV ONE (08:14)
[2024-11-19 09:23] VITALS: BP 139/80; TEMP 97.5
--- NOTE | 2024-11-19 09:41 | RAD REPORT ---
EXAM: Nuclear medicine cardiac perfusion examination with ejection fraction HISTORY: Chest pain TECHNIQUE: Rest images: 10.5 mCi technetium 99m sestamibi Stress images: 31.2 mCi of technetium 99m sestamibi; Lexiscan COMPARISON: None FINDINGS: Tomographic images: No evidence of reversible perfusion defects. Moderate-sized defect with mild fixe d reduction of uptake along the inferior wall mid to basal segments, suggesting sequelae of remote infarct. Gated images: Normal wall motion and ejection fraction of 56%. EDV: 135 mL ESV: 60 mL TID: 1.03 IMPRESSION: No scintigraphic evidence of myocardial ischemia. Mild reduction of uptake along moderate-sized regio n involving mid to basal inferior wall, suggesting sequelae of a remote infarct. Left ventricular ejection fraction:56%, normal. No wall hypomotility.
--- NOTE | 2024-11-19 10:06 | P.PN ---
This is an attestation to PRODUCTION MACHINE TENDER note. Subjective: No chest pain or shortness of breath. No nausea or vomiting. No abdominal pain. No obvious bleeding. Looks comfortable in the bed. Objective: General appearance: Alert and comfortable CVS: Normal S1 and S2 Lungs: Clear to auscultation bilaterally Abdomen: Soft, bowel sounds present, no tenderness Extremities: No lower extremity edema 44-year-old patient with chest pain, CT chest negative, troponins negative, cardiology consult requested, echo normal, stress test no ischemia, old infarct,. Mild leukocytosis, probably reactive, resolved. DC home if cleared by cardiology.
--- NOTE | 2024-11-19 11:36 | P.DS ---
Admission Date: 11/18/24 Discharge Date: 11/19/24 Disposition: ROUTINE DISCHARGE Discharge Condition: GOOD Reason for Admission: chest pain Brief History of Present Illness: 44-year-old male who is otherwise healthy presents to the emergency department with chief complaint of chest pain. The chest pain woke him from his sleep described as "getting kicked in the chest". It is worse with deep breaths. He was evaluated in the emergency department his initial high-sensitivity troponin was normal CTA of the chest was also performed which was negative for acute findings. Patient with ongoing pain, ED provider wishes to admit under observation for ACS rule out. Hospital Course: Assessment: Chest pain rule out ACS Patient was admitted to the hospital for chest pain. His pain was exacerbated with deep breaths but ongoing. His troponins were negative x 4, he was seen by cardiology who recommended stress test. Stress test was performed which showed no reversible ischemia. CTA of the chest was also performed which was negative for PE or other acute findings. He has been pain-free since yesterday. Patient is stable for discharge and outpatient follow-up with his primary care doctor and cardiology outpatient Follow-up with your primary care doctor in 1 week for repeat CBC, BMP and blood pressure check. Blood pressure was elevated yesterday in the 150s systolic but this morning it was 119/67, recommend checking blood pressure at home and recording it to determine need for blood pressure medications at home. Vital Signs/Physical Exam: Temp Pulse Resp BP Pulse Ox 97.5 F 54 16 139/80 99 11/19/24 08:00 11/19/24 08:00 11/19/24 08:00 11/19/24 08:00 11/19/24 08:00 General: Alert, In no apparent distress, Oriented x3 HEENT: Atraumatic Neck: Supple Respiratory: Clear to auscultation bilaterally, Normal air movement Cardiovascular: Regular rate/rhythm, Normal S1 S2 Musculoskeletal: No contractures Neurological: Normal speech Laboratory Data at Discharge: WBC 9.30 thou/uL (4.3-10.9) 11/19/24 05:45 Hgb 14.6 g/dL (13.6-17.9) 11/19/24 05:45 Hct 42.8 % (39.6-49.0) 11/19/24 05:45 Plt Count 280 thou/uL (152-406) 11/19/24 05:45 PT 11.4 SECONDS (10-13.0) 11/18/24 03:13 INR 1.00 11/18/24 03:13 Sodium 137 mEq/L (136-145) 11/19/24 05:45 Potassium 4.0 mEq/L (3.5-5.1) 11/19/24 05:45 BUN 15 mg/dL (7-18) 11/19/24 05:45 Creatinine 0.97 mg/dL (0.70-1.30) 11/19/24 05:45 Glucose 104 mg/dL (74-106) 11/19/24 05:45 Magnesium 1.8 mg/dL (1.6-2.4) 11/18/24 03:13 Total Bilirubin 0.5 mg/dL (0.2-1.0) 11/18/24 03:13 AST 12 U/L (15-37) L 11/18/24 03:13 ALT 38 U/L (16-61) 11/18/24 03:13 Alkaline Phosphatase 81 U/L (45-117) 11/18/24 03:13 Lipase 62 U/L (13-75) 11/18/24 03:13 Home Medications: NK [No Home Meds] 11/18/24 Physician Discharge Instructions: Patient was admitted to the hospital for chest pain. His pain was exacerbated with deep breaths but ongoing. His troponins were negative x 4, he was seen by cardiology who recommended stress test. Stress test was performed which showed no reversible ischemia. CTA of the chest was also performed which was negative for PE or other acute findings. He has been pain-free since yesterday. Patient is stable for discharge and outpatient follow-up with his primary care doctor and cardiology outpatient Follow-up with your primary care doctor in 1 week for repeat CBC, BMP and blood pressure check. Blood pressure was elevated yesterday in the 150s systolic but this morning it was 119/67, recommend checking blood pressure at home and recording it to determine need for blood pressure medications at home. Diet: Regular Activity: Ad jonna Followup: Luis Taylor MD [ACTIVE - CAN ADMIT] - 1-2 Weeks NONE,NONE [Primary Care Provider] - 1 Week Time spent managing pt's care (in minutes): 46
[2024-11-19 11:45] VITALS: O2SAT 91
--- NOTE | 2024-11-19 11:53 | TREADPHA ---
DX: CHEST PAIN Date of Study: 11/19/2024 Ht: 6' 0 " Wt: 270 lb 0 oz Consulting Physician: HAL MEDICATIONS: ASPIRIN, LIPITOR, LOVENOX, COZAAR, MORPHINE, ZOFRAN HISTORY: 44 YEAR OLD MALE WITH COMPLAINTS OF CHEST PAIN. PATIENT DENIES MEDICAL HISTORY. PATIENT DENIES ALLERGIES PHYSICIAL EXAMINATION: RESTING B.P.: 126/52 RESTING H.R.: 53 RESTING EKG: SINUS RHYTHM PROTOCOL: PHARMACOLOGIC EXERCISE TIME: 3:30 B.P. AT [place] STRESS: 107/57 IMPRESSION: LEXISCAN INJECTED. CARDIOLITE INJECTED - SEE NUCLEAR MEDICINE REPORT. PATIENT STATES NO CHEST PAIN. NO SUPRAVENTRICULAR TACHYCARDIA, VENTRICULAR TACHYCARDIA, PREMATURE ATRIAL COMPLEXES, PREMATURE VENTRICULAR COMPLEXES NOTED.
--- NOTE | 2024-11-19 12:00 | P.PN ---
Subjective Date of Service: 11/19/24 Chief Complaint: chest pain Subjective: No new changes, No C/O voiced, Tolerating diet, Ambulating, Improving Review of Systems 10-point ROS is otherwise unremarkable Physical Examination - Vital Signs Temperature: 97.5 F Blood Pressure: 139/80 Pulse: 54 Respirations: 16 Pulse Ox (%): 99 - Physical Exam General: Alert, In no apparent distress HEENT: Atraumatic, PERRLA, EOMI Neck: Supple, JVD not distended Respiratory: Clear to auscultation bilaterally, Normal air movement Cardiovascular: Regular rate/rhythm, Normal S1 S2 Gastrointestinal: Normal bowel sounds, No tenderness Musculoskeletal: No tenderness Integumentary: No rashes Neurological: Normal speech, Normal tone, Normal affect Lymphatics: No axilla or inguinal lymphadenopathy - Studies Medications List Reviewed: Yes Assessment And Plan - Current Problems (Diagnosis) (1) Chest pain Current Visit: Yes Status: Acute Plan: cardiac enzymes are negative, echo is normal Lexiscan is negative for ischemia D/C ASA and lipitor (2) HTN (hypertension) Current Visit: Yes Status: Acute Plan: continue Losartan 25 mg daily
--- NOTE | 2024-11-19 12:39 | EKG ---
Test Date: 2024-11-18 Test Time: 05:46:12 Mastic Sprayer: RIGO MEASUREMENT RESULTS: Intervals: Rate: 68 AR: 158 QRSD: 96 QT: 380 QTc: 404 [place]: P: 29 AR: 158 QRS: 31 T: 47 INTERPRETIVE STATEMENTS: Normal sinus rhythm Normal ECG Compared to ECG 11/18/2024 02:28:36 No significant changes Electronically Signed On 11-19-24 12:36:43 CDT by Luis Taylor
--- NOTE | 2024-11-19 12:39 | EKG ---
Test Date: 2024-11-18 Test Time: 02:28:36 Dry Chain Operator: RIGO MEASUREMENT RESULTS: Intervals: Rate: 64 MI: 170 QRSD: 102 QT: 408 QTc: 420 [place]: P: 38 MI: 170 QRS: 14 T: 66 INTERPRETIVE STATEMENTS: Normal sinus rhythm Normal ECG No previous ECG available for comparison Electronically Signed On 11-19-24 12:36:46 CDT by Luis Taylor
== END 2024-11-19 12:19 | disposition home or self-care (01) ==
LOC: ER 02:17 → ERHOLD 07:18 → 4TH 08:09
PROVIDERS: ADMIT Hospitalist; ATTEND Hospitalist
DX: R07.9 Chest pain, unspecified (principal); I10 Essential (primary) hypertension; D72.829 Elevated white blood cell count, unspecified
CPT/HCPCS: 36415; 71045; 71275; 78452; 80048; 80076; 82077; 82550; 83690; 83735; 83880; 84439; 84443; 84484; 85025; 85610; 93005; 93017; 93306; 96374; 96375; 99285; A9500; G0378; J1650; J2270; J2405; J2470; J2785; Q9967